=== PATIENT | male | born 1985 | race Caucasian/White ===

== ENCOUNTER 2025-08-18 21:50 | Emergency (ER) | payer BC, OTHER, SELFPAY ==
[2025-08-18 21:52] VITALS: BP 143/90
[2025-08-18 22:11] LABS: Hematocrit 42.4 % (39.0-52.0); Hemoglobin 14.8 g/dL (13.0-18.0); Mean Corp Hgb Conc. 34.9 g/dL (33.0-37.0); Mean Corpuscular Volume 87.6 fL (80.0-94.0); Nucleated Red Blood Cells % 0 % (-); Platelet Count 313 10^3/uL (130-400); Red Cell Dist. Width 12.8 % (11.5-14.5)
[2025-08-18 22:28] LABS: ALT (SGPT) 52 U/L (0-50); AST (SGOT) 29 U/L (17-59); Albumin 4.8 g/dl (3.5-5.0); Alkaline Phosphatase 93 U/L (38-126); Blood Urea Nitrogen 17 mg/dl (9-20); Calcium 9.5 mg/dl (8.4-10.2); Carbon Dioxide 26 mmol/L (22-30); Chloride 104 mmol/L (98-107); Glucose 82 mg/dl (70-99); Potassium 4.2 mmol/L (3.5-5.1); Sodium 137 mmol/L (135-145); Total Protein 8.1 g/dl (6.3-8.2); eGFR > 60.00
[2025-08-18 22:45] LABS: Urine Character Clear (Clear)
[2025-08-18 23:40] VITALS: BMI 26.7
[2025-08-18 23:58] VITALS: BP 124/87
[2025-08-19] VITALS: BP 126/86
[2025-08-19] MEDS: ZOFRAN 4 MG IV (00:03)
[2025-08-19] MEDS: TORADOL 15 MG IV (00:05)
[2025-08-19] MEDS: FLOMAX 0.4 MG PO (00:24)
[2025-08-19] MEDS: NSS 1000 IV (00:25)
--- NOTE | 2025-08-19 02:10 | ED.GENMED ---
History of Present Illness
General
Chief Complaint: Flank Pain
Source: patient, spouse and family
Exam Limitations: none
Time Seen by Provider: 08/18/25 23:58
Nursing documentation reviewed up to this point in time: agreed with
History of Present Illness
History of Present Illness:
Note:
CHIEF COMPLAINT(S)
Left flank pain radiating to the abdomen.
HISTORY OF PRESENT ILLNESS
The patient is a 40-year-old male who presents with left flank pain that began yesterday. He describes the pain as similar to previous episodes of kidney stones, noting he has had five episodes in the past. The pain radiates around to the front of
the abdomen. He reports associated symptoms of chills and nausea. The patient attempted self-treatment with ibuprofen, but was uncertain if the medication provided relief. His last episode of kidney stones requiring intervention was last year,
potentially involving the medication tamsulosin. He does not currently have a urologist, having moved to the area recently from [place].
PAST MEDICAL AND SURGICAL HISTORY
- Autoimmune disease: HSP fasciitis
- Herniated disc
- Shoulder issues
- PTSD
- Hearing loss
CHRONIC MEDICAL CONDITIONS SIGNIFICANTLY AFFECTING CARE
- Hypertension
- Hyperlipidemia
- Migraines
SOCIAL HISTORY
Recently moved from [place]. background with noted PTSD and hearing loss related to service.
PHYSICAL EXAM
General: Alert, no acute distress.
Skin: Warm, dry.
Head: Normocephalic, atraumatic.
Neck: Supple, trachea midline.
Eye Ears, nose, mouth, and throat: Oral mucosa moist.
Cardiovascular: Normal peripheral perfusion, No edema.
Respiratory: Respirations are non-labored.
Gastrointestinal: Abdomen nondistended.
Back: Normal range of motion, Normal alignment.
Musculoskeletal: Normal ROM, normal strength.
Neurological: Alert and oriented to person, place, time, and situation, No focal neurological deficit observed.
Psychiatric: Cooperative, appropriate mood & affect.
PLAN
- Conduct a CT scan to evaluate for possible kidney stones.
- Suggest a referral to a urologist in the new area for ongoing management.
DIFFERENTIAL DIAGNOSIS
The Differential Diagnosis includes, in no particular order and is not limited to:
1. Nephrolithiasis (Kidney stones)
2. Pyelonephritis
3. Musculoskeletal pain
4. Renal colic
5. Appendicitis
6. Urinary tract infection
7. Aortic aneurysm
8. Gastrointestinal disturbances
9. Herpes zoster
10. Pancreatitis
Disposition:
SUMMARY OF ENCOUNTER
The patient is a 40-year-old male who presented to the emergency department with left-sided flank pain radiating to the left lower quadrant of the abdomen. He reported associated symptoms of chills but no fever. The pain is similar to previous
episodes of kidney stones. A CT scan was conducted, revealing diverticulitis without evidence of obstruction.
DISPOSITION
Discharge.
ASSESSMENT
Diverticulitis without obstruction as indicated by the CT scan findings.
PLAN
Recommend oral antibiotics and clear liquid diet while monitoring symptoms closely. Advise patient to seek follow-up care with a primary care physician or dimpling machine operator to manage diverticulitis and prevent complications.
INDEPENDENT REVIEW OF LABS AND INTERPRETATION OF TESTS
My independent interpretation of the CT scan indicates diverticulitis with no evidence of obstruction.
PATIENT EDUCATION AND COUNSELING
Advised the patient about diverticulitis, emphasizing the importance of adhering to dietary modifications and medication regimens. Discussed potential signs of complications such as worsening pain, fever, or bleeding which should prompt immediate
medical attention.
FOLLOW-UP INSTRUCTIONS
Please schedule a follow-up visit with a primary care physician or a dimpling machine operator within one week to ensure proper management of diverticulitis and to reassess symptoms.
MEDICATION RECONCILIATION
Prescription for a course of appropriate antibiotics to manage diverticulitis provided upon discharge.
MEDICAL DECISION MAKING
-Chronic conditions affecting care: [Hypertension, Hyperlipidemia, PTSD, Migraines, Autoimmune disease: HSP fasciitis, Herniated disc, Shoulder issues, Hearing loss]
-Differential Diagnosis: Nephrolithiasis (Kidney stones), Pyelonephritis, Musculoskeletal pain, Renal colic, Appendicitis, Urinary tract infection, Aortic aneurysm, Gastrointestinal disturbances, Herpes zoster, Pancreatitis.
-Data:
Category 1:
The CT scan of the abdomen was ordered and independently interpreted, confirming diverticulitis without obstruction.
Category 3:
Plans for outpatient management were discussed with the patient to outline understanding and agreement with the discharge plan.
-Risk:
Prescription medication was prescribed for management of diverticulitis. Consideration of Admission/Observation: Escalation of care including admission/observation was considered given the complexity and risk of the patients presenting complaint,
exam findings, and/or their underlying comorbidities. However, ultimately I feel the patient is safe for outpatient management with close follow-up. Reasoning: Work-up is reassuring, does not reveal any acute life/organ-threatening processes,
patients symptoms well-controlled upon reevaluation, reexamination is reassuring, vitals are stable, patient agreeable with discharge, reliable for follow-up.
DIAGNOSIS
Diverticulitis (ICD-10: K57.32).
Course
Orders/Labs/Results
Orders:
Orders
08/18/25 22:05
Complete Blood Count/With Diff Urgent
Comprehensive Metabolic Panel Urgent
08/18/25 22:36
Urinalysis Reflex To Culture Urgent
Date Specimen was Collected: 08/18/25
Time Specimen was Collected: 21:56
08/19/25 00:01
Ketorolac [Toradol] 15 mg .ROUTE .STK-MED ONE
Ondansetron Injectable [Zofran] 4 mg .ROUTE .STK-MED ONE
08/19/25 00:02
Ondansetron Injectable [Zofran] 4 mg IV NOW STA
08/19/25 00:04
Ketorolac [Toradol] 15 mg IM NOW STA
08/19/25 00:05
Ketorolac [Toradol] 15 mg IV NOW STA
08/19/25 00:15
CT Abd/pel Without Iv Or Oral Urgent
Comment:
Reason For Exam: left flank pain
0.9% Sodium Chloride 1000 ml [Nss] 1,000 ml IV BOLUS
Tamsulosin [Flomax] 0.4 mg PO NOW STA
08/19/25 02:06
Amoxicillin 875 mg/Clav 125 mg [Augmentin 875 mg/125 mg] 1 tablet PO NOW STA
Abnormal Lab Results
08/18/25
22:05
WBC 13.8 H 10^3/uL
(4.8-10.8)
Absolute Neuts (auto) 9.2 H 10^3/uL
(1.4-6.5)
Absolute Monos (auto) 1.2 H 10^3/uL
(0.1-0.6)
ALT 52 H U/L
(0-50)
08/18/25 22:05
08/18/25 22:05
Vital Signs
Initial and Last Documented VS:
Initial Vital Signs
Temp Pulse Resp BP Pulse Ox
98.6 F 86 16 143/90 100
08/18/25 21:52 08/18/25 21:52 08/18/25 21:52 08/18/25 21:52 08/18/25 21:52
Last Documented Vital Signs
Temp Pulse Resp BP Pulse Ox
98.6 F 86 16 126/86 96
08/18/25 21:52 08/18/25 21:52 08/18/25 21:52 08/19/25 00:00 08/19/25 00:00
*Radiology
Radiology exam reviewed: radiology read reviewed
*Pulse Oximetry
SaO2: 96
Oxygen Mode of Delivery: Room air
Patient hypoxic: no
*Critical Care Note
Total Time (30-74mins, 75-104mins- exclusive of procedures): Not Applicable
ED Attending Note
-
Portions of this chart may have been created with voice recognition software.� Occasional wrong word or��sound alike� substitutions may have occurred due to the inherent limitations of voice recognition software.
Discharge Plan
Departure
Patient Disposition: Home (Routine Discharge)
Date of Disposition: 08/19/25
Time of Disposition: 02:10
Patient with high blood pressure during this ER visit?: Yes
Condition: Good
Discharge Problem:
Diverticulitis
Instructions: Diverticulitis (DC), BLOOD PRESSURE
Prescriptions:
New
amoxicillin-pot clavulanate 875-125 mg tablet
1 tab PO BID Qty: 20 0RF
Referrals:
NONE,* [Family Provider, Internal Medicine]
Zina Santos, [Active, Gastroenterology] - As needed
Activity Restrictions/Additional Instructions:
Thank You for choosing [facility].
It was a pleasure meeting you and taking part in your care. We hope for your continued healing and wellness.
Please read discharge instructions in their entirety. However, they are for general education and may not describe your exact diagnosis at discharge. Information on your ER visit and medical conditions were discussed with you along with appropriate
follow up information...
If indicated, please take your medications as instructed and indicated on discharge paperwork.
Please schedule a follow up appointment as directed. Call to schedule an appointment
Please return to the emergency department with ANY change in, persisting, or worsening of symptoms. If any of your symptoms do not improve, or persist, or become more severe within 6-12 hours, please return to the emergency department for further
care.
Please return to the emergency department if you develop a headache, neck pain/stiffness, fever greater than 100.4F, chest pain, shortness of breath, persistent nausea, vomiting, slurred speech, difficulty walking, numbness/tingling, weakness, signs
of infection or any other symptoms that are worrisome to you.
If you have any questions or concerns please do not hesitate to call the Hospital at .
Interventions
Interventions:
*Risk Screen - Suicide Last Done: 08/18/25 21:52
*General Assessment Last Done: 08/18/25 23:40
*Neglect/Abuse Screening Last Done: 08/18/25 21:52
*ED- Fall Risk Assessment Last Done: 08/18/25 23:40
*ED COVID-19 Vaccine History Last Done: 08/18/25 23:40
*ED Influenza Vaccine History Last Done: 08/18/25 23:40
LK-Ihfkgb-Pvymniavrr Assessment Last Done: 08/18/25 23:40
ED-Male Genitourinary Assessment Last Done: 08/18/25 23:40
Discharge Date and Time
Print Language: NEPALI
[2025-08-19] MEDS: AUGMENTIN 875 MG/125 MG 1 TABLET PO (02:28)
== END 2025-08-19 02:47 | disposition home or self-care (01) ==
LOC: EMR 21:50
PROVIDERS: Emergency Medicine; EMERGENCY PHYSICIAN Student in an Organized Health Care Education/Training Program
DX: K57.92 Diverticulitis of intestine, part unspecified, without perforation or abscess without bleeding (principal); I10 Essential (primary) hypertension; E78.5 Hyperlipidemia, unspecified; D69.0 Allergic purpura; F43.10 Post-traumatic stress disorder, unspecified; H91.90 Unspecified hearing loss, unspecified ear; Z87.442 Personal history of urinary calculi
CPT/HCPCS: 99284; 96374; 96375; 96361; 74176; 80053; 81003; 85025